=== PATIENT | male | born 1940 | race Caucasian/White ===

== ENCOUNTER 2020-07-18 12:25 | Emergency (ER) | payer MEDICARE, BC ==
[2020-07-18 12:46] VITALS: BP 155/83; PULSE 70
--- NOTE | 2020-07-18 12:50 | EDM.PDOC ---
ED HPI GENERAL MEDICAL PROBLEM - General Chief Complaint: Cardiovascular Problem Stated Complaint: RAPID HEART RATE Time Seen by Provider: 07/18/20 12:33 Source of Information: Reports: Patient, RN Notes Reviewed - History of Present Illness INITIAL COMMENTS - FREE TEXT/NARRATIVE: 79 yr old male comes in with dyspnea, actually feeling better at this time. No cough, fever, chills. He had some chronic mild dyspnea for "about a year". He did go to the [facility] this morning and walked for a half hour and did well with that. Than resting at home a short time ago he started getting more short of breath. He did have a BM and states his breathing is now better. He does have hx of "constipation problems". States he is scheduled to see a "specialist" at [facility] Monday. - Related Data Allergies Allergy/AdvReac Type Severity Reaction Status Date / Time No Known Allergies Allergy Verified 07/18/20 12:32 Home Meds: Home Meds Orphenadrine [Norflex] 100 mg PO BID #10 tab.er 12/20/15 [Rx] Simvastatin [Zocor] 20 mg PO DAILY 12/20/15 [History] Past Medical History HEENT History: Reports: Cataract, Impaired Vision Other HEENT History: wears eyeglasses. Cardiovascular History: Reports: High Cholesterol - Past Surgical History HEENT Surgical History: Reports: Cataract Surgery Male Surgical History: Reports: Prostatectomy Social & Family History - Tobacco Use Tobacco Use Status *Q: Never Tobacco User Second Hand Smoke Exposure: No - Caffeine Use Caffeine Use: Reports: Coffee - Recreational Drug Use Recreational Drug Use: No ED ROS GENERAL - Review of Systems Review Of Systems: See Below Constitutional: Denies: Fever, Chills HEENT: Denies: Throat Pain Respiratory: Reports: Shortness of Breath. Denies: Cough Cardiovascular: Denies: Chest Pain GI/Abdominal: Reports: Constipation. Denies: Abdominal Pain, Nausea, Vomiting Musculoskeletal: Denies: Shoulder Pain, Arm Pain Skin: Reports: No Symptoms Neurological: Reports: No Symptoms ED EXAM, GENERAL - Physical Exam Exam: See Below General Appearance: Alert, No Apparent Distress Eye Exam: Bilateral Eye: PERRL Head: Atraumatic. No: Facial Swelling Neck: Supple, Other (No JVD) Respiratory/Chest: Respiratory Distress (Mild tachypnea) Cardiovascular: Regular Rate, Rhythm GI/Abdominal: Soft, Non-Tender. No: Guarding Back Exam: No: CVA Tenderness (L), CVA Tenderness (R) Extremities: Normal Inspection. No: Leg Pain, Redness Neurological: Alert, Oriented, No Motor/Sensory Deficits Skin Exam: Warm, Dry, Normal Color #1 Interpretation EKG Date: 07/18/20 Rhythm: NSR Rate (Beats/Min): 64 P-Wave: Present QRS: Other (q waves inf. leads) ST-T: Normal Course - Vital Signs Last Recorded V/S: Last Vital Signs Temp 97.3 F 07/18/20 12:30 Pulse 70 07/18/20 12:30 Resp 20 07/18/20 12:30 BP 155/83 H 07/18/20 12:30 Pulse Ox 98 07/18/20 12:30 - Orders/Labs/Meds Orders: Active Orders 24 hr Category Date Time Status EKG 12 Lead [EKG Documentation Completion] [RC] STAT Care 07/18/20 12:45 Active Chest 1V Frontal [CR] Stat Exams 07/18/20 12:45 Taken Labs: Laboratory Tests 07/18/20 07/18/20 07/18/20 Range/Units 12:35 12:35 12:35 WBC 8.84 (4.23-9.07) K/mm3 RBC 4.55 L (4.63-6.08) M/mm3 Hgb 13.9 (13.7-17.5) gm/dl Hct 41.9 (40.1-51.0) % MCV 92.1 (79.0-92.2) fl MCH 30.5 (25.7-32.2) pg MCHC 33.2 (32.2-35.5) g/dl RDW Std Deviation 43.1 (35.1-43.9) fL Plt Count 201 (163-337) K/mm3 MPV 9.1 L (9.4-12.3) fl Neut % (Auto) 60.0 (34.0-67.9) % Lymph % (Auto) 25.9 (21.8-53.1) % [place] % (Auto) 11.7 (5.3-12.2) % Eos % (Auto) 2.1 (0.8-7.0) Baso % (Auto) 0.2 (0.1-1.2) % Neut # (Auto) 5.30 (1.78-5.38) K/mm3 Lymph # (Auto) 2.29 (1.32-3.57) K/mm3 [place] # (Auto) 1.03 H (0.30-0.82) K/mm3 Eos # (Auto) 0.19 (0.04-0.54) K/mm3 Baso # (Auto) 0.02 (0.01-0.08) K/mm3 D-Dimer, Quantitative (0.19-0.50) mg/L Sodium 137 (136-145) mEq/L Potassium 4.4 (3.5-5.1) mEq/L Chloride 102 (98-107) mEq/L Carbon Dioxide 25 (21-32) mEq/L Anion Gap 14.4 (5-15) BUN 17 (7-18) mg/dL Creatinine 1.3 (0.7-1.3) mg/dL Est Cr Clr Drug Dosing 46.01 mL/min Estimated GFR (MDRD) 53 (>60) mL/min BUN/Creatinine Ratio 13.1 L (14-18) Glucose 106 H (70-99) mg/dL Calcium 8.7 (8.5-10.1) mg/dL Total Bilirubin 0.5 (0.2-1.0) mg/dL AST 24 (15-37) U/L ALT 25 (16-63) U/L Alkaline Phosphatase 78 (46-116) U/L Troponin I < 0.017 (0.00-0.056) ng/mL NT-Pro-B Natriuret Pep 39 (0-450) pg/mL Total Protein 7.6 (6.4-8.2) g/dl Albumin 4.0 (3.4-5.0) g/dl Globulin 3.6 gm/dL Albumin/Globulin Ratio 1.1 (1-2) 07/18/20 Range/Units 12:35 WBC (4.23-9.07) K/mm3 RBC (4.63-6.08) M/mm3 Hgb (13.7-17.5) gm/dl Hct (40.1-51.0) % MCV (79.0-92.2) fl MCH (25.7-32.2) pg MCHC (32.2-35.5) g/dl RDW Std Deviation (35.1-43.9) fL Plt Count (163-337) K/mm3 MPV (9.4-12.3) fl Neut % (Auto) (34.0-67.9) % Lymph % (Auto) (21.8-53.1) % [place] % (Auto) (5.3-12.2) % Eos % (Auto) (0.8-7.0) Baso % (Auto) (0.1-1.2) % Neut # (Auto) (1.78-5.38) K/mm3 Lymph # (Auto) (1.32-3.57) K/mm3 [place] # (Auto) (0.30-0.82) K/mm3 Eos # (Auto) (0.04-0.54) K/mm3 Baso # (Auto) (0.01-0.08) K/mm3 D-Dimer, Quantitative 0.54 H (0.19-0.50) mg/L Sodium (136-145) mEq/L Potassium (3.5-5.1) mEq/L Chloride (98-107) mEq/L Carbon Dioxide (21-32) mEq/L Anion Gap (5-15) BUN (7-18) mg/dL Creatinine (0.7-1.3) mg/dL Est Cr Clr Drug Dosing mL/min Estimated GFR (MDRD) (>60) mL/min BUN/Creatinine Ratio (14-18) Glucose (70-99) mg/dL Calcium (8.5-10.1) mg/dL Total Bilirubin (0.2-1.0) mg/dL AST (15-37) U/L ALT (16-63) U/L Alkaline Phosphatase (46-116) U/L Troponin I (0.00-0.056) ng/mL NT-Pro-B Natriuret Pep (0-450) pg/mL Total Protein (6.4-8.2) g/dl Albumin (3.4-5.0) g/dl Globulin gm/dL Albumin/Globulin Ratio (1-2) - Re-Assessments/Exams Free Text/Narrative Re-Assessment/Exam: 07/18/20 14:25 trop, d dimer, bnp, other labs normal. CXR nl. Resting and breathing comfortably at time of reexam. Sats have been running 98 to 100. Departure - Departure Time of Disposition: 14:22 Disposition: Home, Self-Care 01 Condition: Fair Clinical Impression: Dyspnea Qualifiers: Dyspnea type: unspecified Qualified Code(s): R06.00 - Dyspnea, unspecified Constipation Qualifiers: Constipation type: unspecified constipation type Qualified Code(s): K59.00 - Constipation, unspecified Referrals: Vitaliy Dixon MD [Primary Care Provider] - Forms: ED Department Discharge Additional Instructions: Start taking a daily stool softner such as colace or pericolace. Continue to use miralax as needed. Continue other current meds. See the Specialist in [place] Monday as planned. Return to ED as needed if symptoms worsening in any way. Sepsis Event Note (ED) - Evaluation Sepsis Screening Result: No Definite Risk - Focused Exam Vital Signs: Vital Signs Temp Pulse Resp BP Pulse Ox 07/18/20 12:30 97.3 F 70 20 155/83 H 98 - My Orders Last 24 Hours: My Active Orders 07/18/20 12:45 EKG 12 Lead [EKG Documentation Completion] [RC] STAT Chest 1V Frontal [CR] Stat - Assessment/Plan Last 24 Hours: My Active Orders 07/18/20 12:45 EKG 12 Lead [EKG Documentation Completion] [RC] STAT Chest 1V Frontal [CR] Stat
--- NOTE | 2020-07-19 10:43 | CR ---
Chest: Portable view of the chest was obtained. Comparison: Prior chest x-ray of 05/15/12. Heart size and mediastinum are within normal limits for portable technique. Lung markings are slightly increased most likely relating to technique. Lungs otherwise are clear. No acute osseous abnormality is appreciated. Impression: 1. Findings felt to be technique related as noted above. 2. Nothing acute is seen. Diagnostic code #2
== END 2020-07-18 14:36 | disposition home or self-care (01) ==
LOC: JD.ED 12:25
DX: R06.02 Shortness of breath (principal); K59.00 Constipation, unspecified; E78.00 Pure hypercholesterolemia, unspecified; Z79.899 Other long term (current) drug therapy
CPT/HCPCS: 36415; 71045; 71045-26; 80053; 83880; 84484; 85025; 85379; 93005; 93010; 99284; 99285-25

== ENCOUNTER 2021-02-24 15:07 | Emergency (ER) | payer MEDICARE, BC, OTHER ==
[2021-02-24 15:21] VITALS: BP 154/78; PULSE 68
[2021-02-24] MEDS ORDERED: Sodium Chloride 0.9% 10 ML Syringe FLUSH PRN (15:23)
== END 2021-02-24 17:09 | disposition home or self-care (01) ==
LOC: JD.ED 15:07
DX: J18.9 Pneumonia, unspecified organism (principal); E78.00 Pure hypercholesterolemia, unspecified; Z79.899 Other long term (current) drug therapy
CPT/HCPCS: 36415; 71045; 71045-26; 80053; 85025; 93005; 93010; 99284; 99284-25

== ENCOUNTER 2021-04-28 09:49 | Emergency (ER) | payer MEDICARE, BC, OTHER ==
[2021-04-28 10:05] VITALS: BP 171/86; PULSE 62
[2021-04-28] MEDS ORDERED: Sodium Chloride 0.9% 10 ML Syringe FLUSH PRN ×2 (10:09→11:36)
[2021-04-28] MEDS ORDERED: Iopamidol 755 Mg/ML 100 ML Bottle IVPUSH ONE (11:36)
[2021-04-28] MEDS ORDERED: Sodium Chloride 0.9% 100 ML IV SCH (11:45)
== END 2021-04-28 13:30 | disposition home or self-care (01) ==
LOC: JD.ED 09:49
DX: J84.10 Pulmonary fibrosis, unspecified (principal); E78.00 Pure hypercholesterolemia, unspecified; Z79.899 Other long term (current) drug therapy
CPT/HCPCS: 36415; 71045; 71275; 80053; 83880; 84484; 85007; 85027; 85379; 86140; 93005; 99285; Q9967; 93010; J3490

== ENCOUNTER 2021-05-03 04:35 | Emergency (ER) | payer MEDICARE, BC, OTHER ==
[2021-05-03 04:59] VITALS: BP 157/67; PULSE 68
[2021-05-03] MEDS ORDERED: Albuterol/Ipratropium 3.0-0.5 MG/3 ML Neb Soln NEB ONE (05:50)
[2021-05-03] MEDS ORDERED: Albuterol 6.7 GM Inhaler INH ONE (07:01)
== END 2021-05-03 07:54 | disposition home or self-care (01) ==
LOC: JD.ED 04:35
DX: J84.10 Pulmonary fibrosis, unspecified (principal); E78.00 Pure hypercholesterolemia, unspecified; Z79.899 Other long term (current) drug therapy
CPT/HCPCS: 36415; 36600; 71045; 80053; 82803; 84484; 85025; 93005; 94640; 99285; A9270; 93010; 99284; J7620-GY

== ENCOUNTER 2021-07-30 05:04 | Emergency (ER) | payer MEDICARE, BC ==
[2021-07-30 05:19] VITALS: BP 159/74; PULSE 73
[2021-07-30] MEDS ORDERED: HYDROmorphone 0.5 MG/0.5 ML Syringe IM ONE ×2 (05:37→06:38)
[2021-07-30] MEDS ORDERED: Orphenadrine 100 MG Tab.ER PO STA (05:37)
== END 2021-07-30 07:35 | disposition home or self-care (01) ==
LOC: JD.ED 05:04
DX: M47.892 Other spondylosis, cervical region (principal); E78.00 Pure hypercholesterolemia, unspecified; Z79.899 Other long term (current) drug therapy
CPT/HCPCS: 72125; 96372; 99283; A9270; J1170; 99284

== ENCOUNTER → 2021-12-01 | Day surgery (SDC) | payer MEDICARE, BC ==
[~2021-12-01] MED LIST: Lactated Ringers 1,000 ML IV SCH; Lidocaine 1% 2 ML ONE; Lidocaine 1%/Sod Bicarbonate in NS 8.4% 1 ML Syringe IDERM PRN; Propofol 200 MG/20 ML SDV ONE; Sodium Chloride 0.9% 10 ML Syringe FLUSH PRN; Sodium Chloride 0.9% 10 ML Syringe FLUSH SCH
[2021-12-01 13:01] VITALS: PULSE 60
[2021-12-01 13:13] VITALS: BP 150/76
== END | disposition home or self-care (01) ==
LOC: JD.SDS 08:47
PROVIDERS: ATTEND Surgery
DX: K29.70 Gastritis, unspecified, without bleeding (principal); K29.80 Duodenitis without bleeding; K44.9 Diaphragmatic hernia without obstruction or gangrene; K21.9 Gastro-esophageal reflux disease without esophagitis; E78.2 Mixed hyperlipidemia; G47.33 Obstructive sleep apnea (adult) (pediatric); I65.29 Occlusion and stenosis of unspecified carotid artery; E78.00 Pure hypercholesterolemia, unspecified; Z98.890 Other specified postprocedural states; Z20.822 Contact with and (suspected) exposure to COVID-19; Z79.899 Other long term (current) drug therapy
CPT/HCPCS: 43239; J2704; J7120; 00813; 88305; 99100

== ENCOUNTER 2022-05-25 15:39 | Emergency (ER) | payer MEDICARE, BC ==
[2022-05-25 15:47] VITALS: PULSE 67
[2022-05-25 17:20] LABS: CORONAVIRUS COVID-19 NAA NEGATIVE (NEGATIVE)
[2022-05-25 19:36] VITALS: BP 173/98
== END 2022-05-25 19:30 | disposition home or self-care (01) ==
LOC: JD.ED 15:39
DX: F41.9 Anxiety disorder, unspecified (principal); R06.4 Hyperventilation; E78.00 Pure hypercholesterolemia, unspecified; Z79.899 Other long term (current) drug therapy; Z20.822 Contact with and (suspected) exposure to COVID-19
CPT/HCPCS: 0241U; 36415; 36600; 71046; 80053; 82803; 83605; 83880; 84484; 85025; 85379; 85610; 85730; 87040; 93005; 99285

== ENCOUNTER 2023-03-23 10:13 | Emergency (ER) | payer OTHER, MEDICARE, BC ==
[2023-03-23] MEDS: Cyclobenzaprine 10 MG Tab PO ONE (11:41)
[2023-03-23 13:10] LABS: APPEARANCE,URINE CLEAR (Clear); BILIRUBIN,URINE NEGATIVE (Negative); COLOR,URINE YELLOW (Yellow); GLUCOSE,URINE NEGATIVE (Negative); KETONES,URINE NEGATIVE (Negative); LEUKOCYTE ESTERASE,URINE NEGATIVE (Negative); NITRITE,URINE NEGATIVE (Negative); OCCULT BLOOD,URINE NEGATIVE (Negative); PROTEIN,URINE NEGATIVE (Negative); UROBILINOGEN,URINE 0.2 (0.2-1.0)
[2023-03-23 14:03] VITALS: BP 166/94; PULSE 77
== END 2023-03-23 14:03 | disposition home or self-care (01) ==
LOC: JD.ED 10:13
DX: M48.02 Spinal stenosis, cervical region (principal); E78.00 Pure hypercholesterolemia, unspecified; Z86.16 Personal history of COVID-19; Z79.899 Other long term (current) drug therapy
CPT/HCPCS: 72125; 81003; 99284; A9270

== ENCOUNTER 2023-04-03 04:21 | Emergency (ER) | payer BC, MEDICARE, OTHER ==
[2023-04-03] MEDS ORDERED: Sodium Chloride 0.9% 10 ML Syringe FLUSH PRN (04:40)
[2023-04-03 04:43] LABS: APPEARANCE,URINE CLEAR (Clear); BILIRUBIN,URINE NEGATIVE (Negative); COLOR,URINE YELLOW (Yellow); GLUCOSE,URINE NEGATIVE (Negative); KETONES,URINE NEGATIVE (Negative); LEUKOCYTE ESTERASE,URINE NEGATIVE (Negative); NITRITE,URINE NEGATIVE (Negative); OCCULT BLOOD,URINE NEGATIVE (Negative); PROTEIN,URINE NEGATIVE (Negative); UROBILINOGEN,URINE 0.2 (0.2-1.0)
[2023-04-03] MEDS: Sodium Chloride 0.9% 10 ML Syringe FLUSH ONE (04:45)
[2023-04-03] MEDS: methylPREDNISolone Sodium Succinate 125 MG/2 ML SDV IVPUSH ONE (04:53)
[2023-04-03 04:54] LABS: EPITHELIAL CELLS,URINE 0-5 /hpf (0-5); RBC,URINE 0-5 /hpf (0-5); WBC,URINE 0-5 /hpf (0-5)
[2023-04-03 04:55] LABS: BACTERIA,URINE RARE /hpf (FEW); HYALINE CASTS,URINE 0-5 /lpf (0-5); MUCUS,URINE FEW /hpf (FEW)
[2023-04-03] MEDS: hydrALAZINE 20 MG/ML SDV IVPUSH ONE (05:00)
[2023-04-03] MEDS: Albuterol/Ipratropium 3.0-0.5 MG/3 ML Neb Soln NEB ONE (05:01)
[2023-04-03] MEDS: cefTRIAXone 1 GM in Sodium Chloride 0.9% 100 ML IV ONE (05:05)
[2023-04-03 05:19] LABS: LACTIC ACID 1.3 mmol/L (0.4-2.0)
[2023-04-03 05:22] LABS: HEMOGLOBIN 14.5 gm/dl (14.0-18.0); MEAN CORPUSCULAR HEMOGLOBIN 30.6 pg (28.0-32.0); MEAN CORPUSCULAR VOLUME 92.8 fl (83.0-99.0); MEAN PLATELET VOLUME 8.7 fl (9.4-12.4); PLATELET COUNT,PLT 186 K/mm3 (150-400); RED BLOOD CELL COUNT 4.74 M/mm3 (4.52-5.90)
[2023-04-03 05:40] LABS: CORONAVIRUS COVID-19 NAA NEGATIVE (NEGATIVE); INFLUENZA A NAA NEGATIVE (NEGATIVE)
[2023-04-03 05:40] LABS: A/G RATIO 1.2 (1-2); ALBUMIN 3.9 g/dl (3.4-5.0); ANION GAP 14.2 (5-15); BILIRUBIN TOTAL 0.4 mg/dL (0.2-1.0); BUN/CREATININE RATIO 12.5 (14-18); CALCIUM 8.3 mg/dL (8.5-10.1); CREATININE 1.2 mg/dL (0.7-1.3); EST CRCL DRUG DOSING (CG) 47.31 mL/min; MAGNESIUM 2.1 mg/dL (1.8-2.4); POTASSIUM,K 4.2 mEq/L (3.5-5.1); PROTEIN TOTAL,TP 7.2 g/dl (6.4-8.2)
[2023-04-03 06:01] LABS: BAND PERCENT MAN 0 % (0-10); BASOPHILS PERCENT MAN 0 (0.2-1.2); EOSINOPHILS PERCENT MAN 4 % (0.8-7.0); LYMPHOCYTES % ATYPICAL MANUAL 0 %; LYMPHOCYTES PERCENT MAN 22 % (20-40); MONOCYTES PERCENT MAN 12 % (2-10); PLATELET COUNT ESTIMATE ADEQUATE
[2023-04-03] MEDS: Iopamidol 755 Mg/ML 100 ML Bottle IVPUSH ONE (06:16)
[2023-04-03 07:25] VITALS: BP 147/95; PULSE 66
== END 2023-04-03 07:23 | disposition home or self-care (01) ==
LOC: JD.ED 04:21
DX: J21.8 Acute bronchiolitis due to other specified organisms (principal); R06.00 Dyspnea, unspecified; E78.00 Pure hypercholesterolemia, unspecified; Z86.16 Personal history of COVID-19; Z79.899 Other long term (current) drug therapy
CPT/HCPCS: 0240U; 36415; 71045; 71275; 80053; 81001; 83605; 83735; 83880; 84484; 85007; 85027; 85379; 87040; 93005; 94640; 96365; 96375; 99285; J0696; J2930; J3490; Q9967; J7620-GY

== ENCOUNTER 2023-04-09 22:41 | Emergency (ER) | payer OTHER ==
[2023-04-09 23:52] LABS: BASOPHILS PERCENT AUTO 0.2 % (0.0-1.0); EOSINOPHILS ABSOLUTE AUTO 0.3 K/mm3 (0.0-0.4); EOSINOPHILS PERCENT AUTO 2.4 % (0.0-6.0); HEMATOCRIT 41.8 % (42.0-52.0); HEMOGLOBIN 14.1 gm/dl (14.0-18.0); IMMATURE GRAN ABSOLUTE AUTO 0.08 K/mm3 (0.00-0.05); IMMATURE GRAN PERCENT AUTO 0.7 % (0.0-0.4); LYMPHOCYTES ABSOLUTE AUTO 2.5 K/mm3 (1.0-4.8); LYMPHOCYTES PERCENT AUTO 22.1 % (24.0-44.0); MEAN CORPUSCULAR HEMOGLOBIN 31.1 pg (28.0-32.0); MEAN CORPUSCULAR HGB CONC 33.7 g/dl (32.0-36.0); MEAN CORPUSCULAR VOLUME 92.1 fl (83.0-99.0); MEAN PLATELET VOLUME 8.9 fl (9.4-12.4); MONOCYTES ABSOLUTE AUTO 1.2 K/mm3 (0.0-0.8); MONOCYTES PERCENT AUTO 10.8 % (0.0-8.0); NEUTROPHILS ABSOLUTE AUTO 7.2 K/mm3 (1.8-7.7); NEUTROPHILS PERCENT AUTO 63.8 % (41.0-71.0); PLATELET COUNT,PLT 145 K/mm3 (150-400); RED BLOOD CELL COUNT 4.54 M/mm3 (4.52-5.90); WHITE BLOOD CELL COUNT,WBC 11.24 K/mm3 (3.9-11.3)
[2023-04-10 00:12] LABS: A/G RATIO 1.2 (1-2); ALBUMIN 3.5 g/dl (3.4-5.0); ANION GAP 14.1 (5-15); BILIRUBIN TOTAL 0.4 mg/dL (0.2-1.0); BUN/CREATININE RATIO 17.5 (14-18); CALCIUM 8.5 mg/dL (8.5-10.1); CREATININE 1.2 mg/dL (0.7-1.3); EST CRCL DRUG DOSING (CG) 47.31 mL/min; PROTEIN TOTAL,TP 6.5 g/dl (6.4-8.2)
[2023-04-10 00:16] LABS: POTASSIUM,K 4.1 mEq/L (3.5-5.1)
[2023-04-10 00:28] LABS: APPEARANCE,URINE SLT CLOUDY (Clear); BILIRUBIN,URINE NEGATIVE (Negative); COLOR,URINE YELLOW (Yellow); GLUCOSE,URINE NEGATIVE (Negative); KETONES,URINE NEGATIVE (Negative); LEUKOCYTE ESTERASE,URINE NEGATIVE (Negative); NITRITE,URINE NEGATIVE (Negative); OCCULT BLOOD,URINE TRACE-INTACT (Negative); PH,URINE 6.5 (5.0-8.0); PROTEIN,URINE NEGATIVE (Negative)
[2023-04-10] MEDS: Iopamidol 612 MG/ML 100 ML Bottle IVPUSH ONE (00:37)
[2023-04-10 00:44] LABS: BACTERIA,URINE FEW /hpf (FEW); MUCUS,URINE RARE /hpf (FEW); RBC,URINE 0-5 /hpf (0-5); SQUAMOUS EPITHELIAL CELLS,UR 0-5 /hpf (0-5); WBC,URINE 0-5 /hpf (0-5)
[2023-04-10] MEDS: Sodium Chloride 0.9% 10 ML Syringe FLUSH ONE (00:47)
[2023-04-10] MEDS: Ketorolac 15 MG/ML SDV IVPUSH ONE (01:37)
[2023-04-10 02:07] VITALS: BP 135/86; PULSE 88
== END 2023-04-10 02:07 | disposition home or self-care (01) ==
LOC: JD.ED 22:41
DX: S86.891A Other injury of other muscle(s) and tendon(s) at lower leg level, right leg, initial encounter (principal); S86.892A Other injury of other muscle(s) and tendon(s) at lower leg level, left leg, initial encounter; K59.00 Constipation, unspecified; E78.00 Pure hypercholesterolemia, unspecified; K21.9 Gastro-esophageal reflux disease without esophagitis; Z86.16 Personal history of COVID-19; X58.XXXA Exposure to other specified factors, initial encounter
CPT/HCPCS: 36415; 74177; 80053; 81001; 85025; 96374; 99284; J1885; J3490; Q9967

== ENCOUNTER 2023-08-01 08:39 | Day surgery (SDC) | payer MEDICARE, BC ==
[~2023-08-01 08:39] MED LIST changes: -Lactated Ringers 1,000 ML IV SCH; -Lidocaine 1% 2 ML ONE; -Lidocaine 1%/Sod Bicarbonate in NS 8.4% 1 ML Syringe IDERM PRN; -Propofol 200 MG/20 ML SDV ONE
[2023-08-01] MEDS: Lactated Ringers 1,000 ML IV SCH (09:17)
[2023-08-01] MEDS ORDERED: Midazolam 1 MG/ML 2 ML SDV ONE (11:06)
[2023-08-01] MEDS ORDERED: Lidocaine 1% 5 ML VIAL ONE (11:06)
[2023-08-01] MEDS ORDERED: Propofol 200 MG/20 ML SDV ONE (11:06)
[2023-08-01] MEDS ORDERED: fentaNYL 100 MCG/2 ML SDV ONE (11:06)
[2023-08-01] MEDS ORDERED: ceFAZolin 2 GM Vial ONE (11:07)
[2023-08-01] MEDS: EPINEPHrine 1 MG/ML SDV ONE (11:28)
[2023-08-01] MEDS: Bupivacaine 0.5% 30 ML SDV ONE (11:28)
[2023-08-01] MEDS ORDERED: Bupivacaine 0.5% 30 ML SDV ONE (11:35)
[2023-08-01] MEDS ORDERED: EPINEPHrine 1 MG/ML SDV ONE (11:35)
[2023-08-01] MEDS ORDERED: Ondansetron 4 MG/2 ML SDV ONE (12:04)
[2023-08-01] MEDS ORDERED: Lactated Ringers 1,000 ML ONE (12:14)
[2023-08-01] MEDS ORDERED: Ketorolac 15 MG/ML SDV ONE (12:14)
[2023-08-01] MEDS ORDERED: fentaNYL 100 MCG/2 ML SDV IVPUSH PRN (12:34)
[2023-08-01 14:17] VITALS: BP 135/70; PULSE 77
== END 2023-08-01 14:15 ==
LOC: JD.SDS 08:39
PROVIDERS: ATTEND Surgery
DX: K40.90 Unilateral inguinal hernia, without obstruction or gangrene, not specified as recurrent (principal); E78.00 Pure hypercholesterolemia, unspecified; G47.30 Sleep apnea, unspecified; M19.90 Unspecified osteoarthritis, unspecified site; F41.9 Anxiety disorder, unspecified; Z90.79 Acquired absence of other genital organ(s); Z79.899 Other long term (current) drug therapy
CPT/HCPCS: 49505; J0171; J0665; J0690; J1885; J2250; J2405; J2704; J3010; J7120; J3490

== ENCOUNTER 2023-08-02 14:19 | Emergency (ER) | payer BC, MEDICARE, OTHER ==
[2023-08-02 17:10] VITALS: BP 116/68; PULSE 75
== END 2023-08-02 16:15 | disposition home or self-care (01) ==
LOC: JD.ED 14:19
DX: K91.871 Postprocedural hematoma of a digestive system organ or structure following other procedure (principal); E78.00 Pure hypercholesterolemia, unspecified; K21.9 Gastro-esophageal reflux disease without esophagitis; Z79.899 Other long term (current) drug therapy
CPT/HCPCS: 99282

== ENCOUNTER 2023-10-19 08:35 | Day surgery (SDC) | payer MEDICARE, OTHER ==
[~2023-10-19 08:35] MED LIST changes: +Propofol 200 MG/20 ML SDV ONE; -Sodium Chloride 0.9% 10 ML Syringe FLUSH SCH; +ceFAZolin 2 GM Vial ONE; +fentaNYL 100 MCG/2 ML SDV ONE
[2023-10-19] MEDS: Lactated Ringers 1,000 ML IV SCH (09:10)
[2023-10-19] MEDS ORDERED: Lidocaine 1% PF 2 ML SDV ONE ×2 (10:45)
[2023-10-19] MEDS ORDERED: Propofol 200 MG/20 ML SDV ONE (11:00)
[2023-10-19] MEDS ORDERED: fentaNYL 100 MCG/2 ML SDV IVPUSH PRN (11:37)
[2023-10-19] MEDS ORDERED: Ondansetron 4 MG/2 ML SDV IVPUSH PRN (11:37)
[2023-10-19] MEDS: fentaNYL 100 MCG/2 ML SDV IVPUSH PRN (11:50)
[2023-10-19] MEDS: Bupivacaine 0.5% 30 ML SDV ONE (11:52)
[2023-10-19] MEDS: HYDROmorphone 0.5 MG/0.5 ML Syringe IVPUSH PRN (12:18)
[2023-10-19] MEDS: Sodium Chloride 0.9% 10 ML Syringe FLUSH SCH (12:52)
[2023-10-19] MEDS: LORazepam 2 MG/ML SDV IVPUSH ONE (12:52)
[2023-10-19 16:12] VITALS: BP 166/88; PULSE 72
== END 2023-10-19 15:20 | disposition home or self-care (01) ==
LOC: JD.SDS 08:35
PROVIDERS: ATTEND Surgery
DX: N43.3 Hydrocele, unspecified (principal); K21.9 Gastro-esophageal reflux disease without esophagitis; E78.00 Pure hypercholesterolemia, unspecified
CPT/HCPCS: 00920; 99100; J0665; J0690; J1170; J2060; J2704; J3010; J3490; J7120

== ENCOUNTER 2024-04-25 05:07 | Emergency (ER) | payer BC, MEDICARE, OTHER ==
[2024-04-25] MEDS ORDERED: Naloxone 0.4 MG/ML SDV IVPUSH PRN (05:41)
[2024-04-25] MEDS: Sodium Chloride 0.9% 10 ML Syringe FLUSH PRN (05:56)
[2024-04-25] MEDS: HYDROmorphone 0.5 MG/0.5 ML Syringe IVPUSH ONE (05:56)
[2024-04-25 06:00] LABS: BASOPHILS PERCENT AUTO 0.3 % (0.0-1.0); EOSINOPHILS ABSOLUTE AUTO 0.2 K/mm3 (0.0-0.4); EOSINOPHILS PERCENT AUTO 1.8 % (0.0-6.0); HEMATOCRIT 43.6 % (42.0-52.0); HEMOGLOBIN 14.5 gm/dl (14.0-18.0); IMMATURE GRAN ABSOLUTE AUTO 0.04 K/mm3 (0.00-0.05); IMMATURE GRAN PERCENT AUTO 0.4 % (0.0-0.4); LYMPHOCYTES PERCENT AUTO 21.7 % (24.0-44.0); MEAN CORPUSCULAR HEMOGLOBIN 30.7 pg (28.0-32.0); MEAN CORPUSCULAR HGB CONC 33.3 g/dl (32.0-36.0); MEAN CORPUSCULAR VOLUME 92.2 fl (83.0-99.0); MONOCYTES PERCENT AUTO 10.8 % (0.0-8.0); NEUTROPHILS ABSOLUTE AUTO 6.1 K/mm3 (1.8-7.7); PLATELET COUNT,PLT 200 K/mm3 (150-400); RED BLOOD CELL COUNT 4.73 M/mm3 (4.52-5.90); WHITE BLOOD CELL COUNT,WBC 9.37 K/mm3 (3.9-11.3)
[2024-04-25 06:16] LABS: A/G RATIO 1.1 (1-2); ALBUMIN 3.7 g/dl (3.4-5.0); ANION GAP 13.1 (5-15); BILIRUBIN TOTAL 0.7 mg/dL (0.2-1.0); BUN/CREATININE RATIO 11.5 (14-18); CALCIUM 9.3 mg/dL (8.5-10.1); CREATININE 1.3 mg/dL (0.7-1.3); EST CRCL DRUG DOSING (CG) 40.19 mL/min; POTASSIUM,K 4.1 mEq/L (3.5-5.1)
[2024-04-25 06:21] LABS: LACTIC ACID 0.7 mmol/L (0.4-2.0)
[2024-04-25] MEDS ORDERED: cefTRIAXone 500 MG Vial IVPUSH ONE (07:12)
[2024-04-25 07:48] LABS: APPEARANCE,URINE CLEAR (Clear); BILIRUBIN,URINE NEGATIVE (Negative); COLOR,URINE YELLOW (Yellow); GLUCOSE,URINE NEGATIVE (Negative); KETONES,URINE NEGATIVE (Negative); LEUKOCYTE ESTERASE,URINE NEGATIVE (Negative); NITRITE,URINE NEGATIVE (Negative); OCCULT BLOOD,URINE NEGATIVE (Negative); PROTEIN,URINE NEGATIVE (Negative); UROBILINOGEN,URINE 0.2 (0.2-1.0)
[2024-04-25] MEDS: cefTRIAXone 1 GM Vial IVPUSH ONE (08:00)
[2024-04-25 08:54] VITALS: BP 142/87; PULSE 66
== END 2024-04-25 08:32 | disposition home or self-care (01) ==
LOC: JD.ED 05:07
DX: N49.2 Inflammatory disorders of scrotum (principal); E78.00 Pure hypercholesterolemia, unspecified; Z79.899 Other long term (current) drug therapy
CPT/HCPCS: 36415; 76870; 80053; 81003; 83605; 85025; 93975; 96374; 96375; 99284; J0696

== ENCOUNTER 2024-04-30 09:43 | Emergency (ER) | payer OTHER ==
[2024-04-30] MEDS ORDERED: Sodium Chloride 0.9% 10 ML Syringe FLUSH PRN (10:14)
[2024-04-30 10:41] LABS: BASOPHILS PERCENT AUTO 0.4 % (0.0-1.0); EOSINOPHILS ABSOLUTE AUTO 0.1 K/mm3 (0.0-0.4); HEMATOCRIT 43.9 % (42.0-52.0); IMMATURE GRAN ABSOLUTE AUTO 0.03 K/mm3 (0.00-0.05); IMMATURE GRAN PERCENT AUTO 0.4 % (0.0-0.4); LYMPHOCYTES ABSOLUTE AUTO 1.8 K/mm3 (1.0-4.8); LYMPHOCYTES PERCENT AUTO 21.6 % (24.0-44.0); MEAN CORPUSCULAR HEMOGLOBIN 31.3 pg (28.0-32.0); MEAN CORPUSCULAR HGB CONC 34.2 g/dl (32.0-36.0); MEAN CORPUSCULAR VOLUME 91.5 fl (83.0-99.0); MEAN PLATELET VOLUME 8.9 fl (9.4-12.4); MONOCYTES ABSOLUTE AUTO 0.9 K/mm3 (0.0-0.8); MONOCYTES PERCENT AUTO 11.1 % (0.0-8.0); NEUTROPHILS ABSOLUTE AUTO 5.4 K/mm3 (1.8-7.7); NEUTROPHILS PERCENT AUTO 65.5 % (41.0-71.0); PLATELET COUNT,PLT 186 K/mm3 (150-400); WHITE BLOOD CELL COUNT,WBC 8.19 K/mm3 (3.9-11.3)
[2024-04-30 10:59] LABS: A/G RATIO 1.1 (1-2); ALBUMIN 3.6 g/dl (3.4-5.0); ANION GAP 12.2 (5-15); BILIRUBIN TOTAL 0.7 mg/dL (0.2-1.0); BUN/CREATININE RATIO 12.1 (14-18); CALCIUM 8.7 mg/dL (8.5-10.1); CREATININE 1.4 mg/dL (0.7-1.3); EST CRCL DRUG DOSING (CG) 36.07 mL/min; POTASSIUM,K 4.2 mEq/L (3.5-5.1)
[2024-04-30 12:32] LABS: APPEARANCE,URINE CLEAR (Clear); BILIRUBIN,URINE NEGATIVE (Negative); COLOR,URINE YELLOW (Yellow); GLUCOSE,URINE NEGATIVE (Negative); KETONES,URINE 2+ (Negative); LEUKOCYTE ESTERASE,URINE NEGATIVE (Negative); NITRITE,URINE NEGATIVE (Negative); OCCULT BLOOD,URINE NEGATIVE (Negative); PROTEIN,URINE TRACE (Negative)
[2024-04-30 13:04] LABS: BACTERIA,URINE NOT SEEN /hpf (FEW); EPITHELIAL CELLS,URINE 0-5 /hpf (0-5); MUCUS,URINE NOT SEEN /hpf (FEW); RBC,URINE 0-5 /hpf (0-5); WBC,URINE 0-5 /hpf (0-5)
[2024-04-30 15:56] VITALS: BP 158/99; PULSE 77
== END 2024-04-30 15:23 | disposition home or self-care (01) ==
LOC: JD.ED 09:43
DX: N43.3 Hydrocele, unspecified (principal); N45.1 Epididymitis; E78.00 Pure hypercholesterolemia, unspecified; K21.9 Gastro-esophageal reflux disease without esophagitis; Z79.899 Other long term (current) drug therapy; Z79.1 Long term (current) use of non-steroidal anti-inflammatories (NSAID)
CPT/HCPCS: 36415; 71045; 71045-26; 76870; 76870-26; 80053; 81001; 85025; 87428-QW; 93005; 93010; 93975; 99283; 99285

== ENCOUNTER 2024-05-01 05:13 | Emergency (ER) | payer OTHER ==
[2024-05-01 07:45] VITALS: BP 129/108; PULSE 60
== END 2024-05-01 07:43 | disposition home or self-care (01) ==
LOC: JD.ED 05:13
DX: N43.3 Hydrocele, unspecified (principal); Z79.899 Other long term (current) drug therapy
CPT/HCPCS: 99283

== ENCOUNTER 2024-05-02 04:13 | Emergency (ER) | payer OTHER ==
[2024-05-02] MEDS ORDERED: Naloxone 0.4 MG/ML SDV IVPUSH PRN (04:49)
[2024-05-02] MEDS: Sodium Chloride 0.9% 500 ML IV ONE (04:58)
[2024-05-02] MEDS: Acetaminophen 325 MG Tab PO ONE (04:59)
[2024-05-02] MEDS: Ondansetron 4 MG/2 ML SDV IVPUSH ONE (05:02)
[2024-05-02] MEDS: fentaNYL 100 MCG/2 ML SDV IVPUSH ONE (05:02)
[2024-05-02 05:41] LABS: BASOPHILS PERCENT AUTO 0.3 % (0.0-1.0); EOSINOPHILS ABSOLUTE AUTO 0.1 K/mm3 (0.0-0.4); EOSINOPHILS PERCENT AUTO 1.4 % (0.0-6.0); HEMATOCRIT 41.3 % (42.0-52.0); HEMOGLOBIN 13.8 gm/dl (14.0-18.0); IMMATURE GRAN ABSOLUTE AUTO 0.02 K/mm3 (0.00-0.05); IMMATURE GRAN PERCENT AUTO 0.3 % (0.0-0.4); LYMPHOCYTES ABSOLUTE AUTO 1.7 K/mm3 (1.0-4.8); LYMPHOCYTES PERCENT AUTO 23.7 % (24.0-44.0); MEAN CORPUSCULAR HEMOGLOBIN 30.9 pg (28.0-32.0); MEAN CORPUSCULAR HGB CONC 33.4 g/dl (32.0-36.0); MEAN CORPUSCULAR VOLUME 92.4 fl (83.0-99.0); MEAN PLATELET VOLUME 9.3 fl (9.4-12.4); MONOCYTES ABSOLUTE AUTO 0.9 K/mm3 (0.0-0.8); MONOCYTES PERCENT AUTO 12.4 % (0.0-8.0); NEUTROPHILS ABSOLUTE AUTO 4.4 K/mm3 (1.8-7.7); NEUTROPHILS PERCENT AUTO 61.9 % (41.0-71.0); PLATELET COUNT,PLT 178 K/mm3 (150-400); RED BLOOD CELL COUNT 4.47 M/mm3 (4.52-5.90); WHITE BLOOD CELL COUNT,WBC 7.04 K/mm3 (3.9-11.3)
[2024-05-02] MEDS: Sodium Chloride 0.9% 500 ML IV SCH (05:44)
[2024-05-02 05:45] LABS: A/G RATIO 1.1 (1-2); ALBUMIN 3.6 g/dl (3.4-5.0); ANION GAP 14.1 (5-15); BILIRUBIN TOTAL 0.7 mg/dL (0.2-1.0); BUN/CREATININE RATIO 10.7 (14-18); C-REACTIVE PROTEIN 0.19 mg/dL (<0.30); CALCIUM 8.5 mg/dL (8.5-10.1); CREATININE 1.4 mg/dL (0.7-1.3); EST CRCL DRUG DOSING (CG) 34.81 mL/min; MAGNESIUM 1.8 mg/dL (1.8-2.4); POTASSIUM,K 4.1 mEq/L (3.5-5.1)
[2024-05-02 06:32] LABS: APPEARANCE,URINE CLEAR (Clear); BILIRUBIN,URINE NEGATIVE (Negative); COLOR,URINE YELLOW (Yellow); GLUCOSE,URINE NEGATIVE (Negative); KETONES,URINE 1+ (Negative); LEUKOCYTE ESTERASE,URINE NEGATIVE (Negative); NITRITE,URINE NEGATIVE (Negative); OCCULT BLOOD,URINE NEGATIVE (Negative); PROTEIN,URINE TRACE (Negative)
[2024-05-02 06:38] LABS: BACTERIA,URINE FEW /hpf (FEW); MUCUS,URINE FEW /hpf (FEW); RBC,URINE 0-5 /hpf (0-5); SQUAMOUS EPITHELIAL CELLS,UR 0-5 /hpf (0-5); WBC,URINE 0-5 /hpf (0-5)
[2024-05-02 06:47] VITALS: BP 160/83; PULSE 62
== END 2024-05-02 08:58 | disposition home or self-care (01) ==
LOC: JD.ED 04:13
DX: N43.3 Hydrocele, unspecified (principal); K59.00 Constipation, unspecified; Z79.899 Other long term (current) drug therapy; Z87.09 Personal history of other diseases of the respiratory system
CPT/HCPCS: 36415; 51798; 74176; 76870; 80053; 81001; 83690; 83735; 85025; 85652; 86140; 93975; 96361; 96374; 96375; 99284; A9270; J2405; J3010; J7030

== ENCOUNTER 2024-07-02 10:34 | Emergency (ER) | payer OTHER ==
[2024-07-02] MEDS: Iopamidol 755 Mg/ML 100 ML Bottle IVPUSH ONE (11:54)
[2024-07-02] MEDS: Sodium Chloride 0.9% 10 ML Syringe FLUSH ONE (11:54)
[2024-07-02] MEDS: Sodium Chloride 0.9% 100 ML IV SCH (11:54)
[2024-07-02 12:08] LABS: BASOPHILS PERCENT AUTO 0.3 % (0.0-1.0); EOSINOPHILS ABSOLUTE AUTO 0.2 K/mm3 (0.0-0.4); EOSINOPHILS PERCENT AUTO 2.2 % (0.0-6.0); HEMATOCRIT 42.9 % (42.0-52.0); HEMOGLOBIN 14.3 gm/dl (14.0-18.0); IMMATURE GRAN ABSOLUTE AUTO 0.02 K/mm3 (0.00-0.05); IMMATURE GRAN PERCENT AUTO 0.2 % (0.0-0.4); LYMPHOCYTES ABSOLUTE AUTO 2.8 K/mm3 (1.0-4.8); LYMPHOCYTES PERCENT AUTO 30.4 % (24.0-44.0); MEAN CORPUSCULAR HEMOGLOBIN 30.2 pg (28.0-32.0); MEAN CORPUSCULAR HGB CONC 33.3 g/dl (32.0-36.0); MEAN CORPUSCULAR VOLUME 90.5 fl (83.0-99.0); MEAN PLATELET VOLUME 8.7 fl (9.4-12.4); MONOCYTES ABSOLUTE AUTO 1.1 K/mm3 (0.0-0.8); MONOCYTES PERCENT AUTO 11.5 % (0.0-8.0); NEUTROPHILS PERCENT AUTO 55.4 % (41.0-71.0); PLATELET COUNT,PLT 229 K/mm3 (150-400); RED BLOOD CELL COUNT 4.74 M/mm3 (4.52-5.90); WHITE BLOOD CELL COUNT,WBC 9.11 K/mm3 (3.9-11.3)
[2024-07-02 12:21] LABS: A/G RATIO 0.9 (1-2); ALBUMIN 3.3 g/dl (3.4-5.0); ANION GAP 15.5 (5-15); BILIRUBIN TOTAL 0.5 mg/dL (0.2-1.0); BUN/CREATININE RATIO 12.7 (14-18); C-REACTIVE PROTEIN 0.69 mg/dL (<0.30); CALCIUM 9.2 mg/dL (8.5-10.1); CREATININE 1.5 mg/dL (0.7-1.3); EST CRCL DRUG DOSING (CG) 32.49 mL/min; POTASSIUM,K 4.5 mEq/L (3.5-5.1); PROTEIN TOTAL,TP 6.9 g/dl (6.4-8.2)
[2024-07-02] MEDS: HYDROmorphone 0.5 MG/0.5 ML Syringe IVPUSH ONE (13:11)
[2024-07-02] MEDS: Sodium Chloride 0.9% 10 ML Syringe FLUSH PRN (13:12)
[2024-07-02 16:06] VITALS: BP 152/100; PULSE 67
== END 2024-07-02 15:00 | disposition home or self-care (01) ==
LOC: JD.ED 10:34
DX: N50.89 Other specified disorders of the male genital organs (principal); R06.02 Shortness of breath; Z79.51 Long term (current) use of inhaled steroids; Z79.899 Other long term (current) drug therapy
CPT/HCPCS: 36415; 71275; 76870; 80053; 83690; 83735; 84484; 85025; 85379; 86140; 93005; 93971; 93975; 96374; 99285; Q9967